=== PATIENT | female | born 1975 | race Caucasian/White ===

== ENCOUNTER 2018-01-07 09:10 | Outpatient (CLI) | payer OTHER ==
--- NOTE | 2018-01-07 11:53 | ULT ---
ULTRASOUND ABDOMEN: Date: 01/07/18 HISTORY: Severe epigastric pain radiating to back. FINDINGS: The liver demonstrates homogeneous echotexture without focal mass or intrahepatic ductal dilatation. The gallbladder is full of shadowing calculi without gallbladder wall thickening or pericholecystic f luid. The common duct measures 5.0 mm in diameter. The kidneys and visualized portions of the pancrea s (tail obscured by overlying bowel gas), aorta, and IVC are normal. No free fluid is seen. IMPRESSION: Cholelithiasis. POS: BIA
== END 2018-01-07 09:11 | disposition home or self-care (01) ==
LOC: SCSULT 09:10
PROVIDERS: ATTEND Family Medicine
DX: R10.13 Epigastric pain (principal); R10.12 Left upper quadrant pain; K80.20 Calculus of gallbladder without cholecystitis without obstruction
CPT/HCPCS: 76700